=== PATIENT | male | born 1990 | race Two or more races ===

== ENCOUNTER 2024-03-31 15:53 | Emergency (ER) | payer MEDICAID, SELFPAY ==
--- NOTE | 2024-03-31 15:55 | EKG_ITS ---
[facility] Test Date: 2024-03-31 Pat Name: MARGARITO THACKER Department: Room: - Gender: Male [employer]: : 1990 Requested By: Conor Cohen (CORNELIA) Order Number: [id number] Reading MD: Conor Cohen (REFRACTORY TECHNICIAN) Measurements Intervals [place] Rate: 71 P: 36 WA: 158 QRS: 48 QRSD: 99 T: 32 QT: 374 QTc: 408 Interpretive Statements SINUS RHYTHM INDETERMINATE AXIS ATYPICAL ECG No previous ECG available for comparison /[email or web address]/[id number]
[2024-03-31 15:59] VITALS: BP 153/88; PULSE 75; RESP 18; TEMP 36.9; O2SAT 97; BMI 36.5
--- NOTE | 2024-03-31 16:05 | XR_ITS ---
Examination: PA lateral chest 2 views TECHNIQUE: Upright PA lateral chest 2 views Exam date 9: March 31, 2024 1620 hours Comparison August 26, 2021 INDICATIONS: Cardiac palpitations chest discomfort today. FINDINGS: Normal heart size Lungs are clear. The osseous structures are intact IMPRESSION: No active disease
[2024-03-31 17:09] LABS: Troponin I < 0.002 ng/mL (0.0-0.045)
--- NOTE | 2024-03-31 17:52 | PD.EDARRY ---
ED Arrhythmia Palp. RME/HPI General Chief Complaint: Arrhythmia/Palpitations Stated Complaint: PALPITATIONS, CHEST DISCOMFORT Time Seen by Provider: 03/31/24 16:05 Arrival date/time: 03/31/24 15:53 33-year-old male with history of anxiety presents to the emergency department today stating that he felt that he had some palpitations today patient reports no fever nausea or vomiting no dizziness or weakness no chest pain or shortness of breath Limitations: no limitations Related Data Previous Rx's ?Medication ?Instructions ?Recorded Promethazine Hcl (Phenergan) 1 tab PO Q4-6HRPRN PRN NAUSEA OR 07/19/13 VOMITING #15 tabs lorazepam 1 mg tablet (Ativan) 1 mg PO QHSPRN PRN sleep #14 tabs 08/22/21 Allergies Allergy/AdvReac Type Severity Reaction Status Date / Time No Known Allergies Allergy Verified 03/31/24 15:55 Review of Systems Review of Systems Systems Reviewed: All systems reviewed, normal except as documented Constitutional Constitutional: Reports system reviewed and no additional complaints, except as documented, Denies fever(s) and Denies headache(s) Eyes Eyes: Reports system reviewed and no additional complaints, except as documented and Denies blurry vision ENT Ears, Nose, Mouth, and Throat: Reports system reviewed and no additional complaints, except as documented, Denies headache(s), Denies nasal congestion and Denies nasal discharge Cardiovascular Cardiovascular: Reports system reviewed and no additional complaints, except as documented, Denies chest pain, Denies dyspnea and Reports other (Palpitation) Respiratory Respiratory: Reports system reviewed and no additional complaints, except as documented, Denies chest congestion, Denies cough and Denies dyspnea Gastrointestinal Gastrointestinal: Reports system reviewed and no additional complaints, except as documented and Denies abdominal pain Integumentary/Breasts Skin/Breast: Reports system reviewed and no additional complaints, except as documented and Denies rash Neurologic Neurologic: Reports system reviewed and no additional complaints, except as documented, Reports as per HPI and Denies headache(s) Psychiatric Psychiatric: Reports system reviewed and no additional complaints, except as documented and Reports anxiety Past Medical History Past Medical History NEUROLOGIC: Negative Neurological Disorders CARDIAC: Negative Cardiac Disorders ED Exam General Limitations: Present no limitations General appearance: Present alert and in no apparent distress Head Head exam: Present atraumatic, normocephalic and normal inspection Eye Eye exam: Present normal appearance, PERRL and EOMI; Absent conjunctival injection ENT ENT exam: Present normal exam, normal oropharynx and mucous membranes moist Neck Neck exam: Present normal inspection, full ROM and trachea midline Chest Chest inspection: Present normal inspection and symmetric chest wall rise Respiratory Respiratory exam: Present normal lung sounds bilaterally; Absent respiratory distress Cardiovascular Cardiovascular exam: Present regular rate, normal rhythm and normal heart sounds; Absent bradycardia, tachycardia, irregular rhythm, systolic murmur or diastolic murmur Abdominal Exam Abdominal exam: Present soft and normal bowel sounds; Absent distention, tenderness, guarding, rebound or rigidity Extremities Exam Extremities exam: Present normal inspection and full ROM Back Exam Back exam: Present normal inspection and full ROM Neurological Exam Neurological exam: Present alert, oriented X3 and CN II-XII intact Psychiatric Psychiatric exam: Present normal affect and normal mood Skin Skin exam: Present warm, dry, intact and normal color Course Quality Measures none Orders Category Date Time Status EKG (ED ONLY) *Do not use* NOW Care 03/31/24 15:55 Completed EKG (ED Only) Stat Exams 03/31/24 15:55 Draft XR chest 2V Stat Exams 03/31/24 16:05 Completed Troponin I Stat Lab 03/31/24 16:15 Completed Vital Signs Vital signs: Vital Signs Temperature 98.5 F 03/31/24 15:59 Pulse Rate 75 03/31/24 15:59 Respiratory Rate 18 03/31/24 15:59 Blood Pressure 153/88 H 03/31/24 15:59 Pulse Oximetry (%) 97 03/31/24 15:59 Oxygen Delivery Method Room Air 03/31/24 15:59 O2 saturation 97% room air within normal limits Procedures -ED EKG Interpretation #1: Date of EK03/31/24 Time of EK:02 Rate: 71 Interpretation: Interpreted by me EKG Impression: Normal sinus rhythm, No acute ST-T changes, No ectopy, No ischemic changes, Normal QRS, Normal intervals and Normal axis Arrhythmia/Palpitations [facility] Narrative MDM Narrative:: 33-year-old male with history of anxiety presents to the emergency department today stating that he felt that he had some palpitations today patient reports no fever nausea or vomiting no dizziness or weakness no chest pain or shortness of breath On exam patient does not appear ill or toxic in no acute distress patient hemodynamically stable Chest x-ray, EKG and lab work obtained no acute emergent findings noted Patient discharged home in no distress to follow-up with primary care doctor in the next 24 to 48 hours and for any worsening symptoms to return to the ER immediately Patient data External records reviewed:: [facility] previous records Clinical information provided by:: patient Social determinants that could affect healthcare access:: mental health Patient has the following chronic illnesses:: Anxiety How is presenting disease/condition affected by chronic disease/condition?: exacerbated by Evaluation data The following diagnostics were reviewed and interpreted by me:: lab results, radiology exam(s) and EKG tracing(s) Lab and/or radiology exams considered but not ordered:: Labs, radiology, EKG obtained Interpretation Summary: Reviewed by me Medications / Prescriptions Medications or Prescriptions considered but not ordered:: No meds Medication administrations:: No meds Consultations Consultation(s) initiated? (list below): No Diagnosis Differential diagnosis arrhythmia/palpitations: palpitations, anxiety, sinus tachycardia and supraventricular tachycardia Most likely diagnosis given after review of the tests above:: Anxiety Admission Indicated Admission indicated?: not indicated Admission Request Was there a request for admission?: No Disposition Plan Disposition Plan: Discharge Discharge Attestation Discharge Attestation: The patient and all family members were given an opportunity to ask questions and understood the discharge instructions. Discharge instructions specifically effects, indications for sooner follow up or return to the emergency department, and the expected course of current diagnosis. Patient condition: Stable Discharge Plan Plan Patient Disposition: HOME (Self Care) Disposition Comment: Stable Prescriptions/Referrals Prescriptions/Med Rec: No Action Promethazine Hcl (Phenergan) 25 MG tablet 1 tab PO Q4-6HRPRN PRN (Reason: NAUSEA OR VOMITING) Qty: 15 0RF lorazepam [Ativan] 1 mg tablet 1 mg PO QHSPRN PRN (Reason: sleep) Qty: 14 0RF [facility]: [facility] [Primary Care Provider] - 04/01/24 Problem List Clinical Impression: Palpitations Patient/Caregiver Discharge Instructions Education Materials: ED Palpitations Additional Instructions: Please follow up with your primary care doctor in the next 24-48hrs for any worsening symptoms return here immediately Print Language: Romanian Stand Alone Forms: Vale Award Info., Work/School Release, Patient Portal Info Letter BOBBY/YARI Supervising Physician BOBBY/YARI Supervising Physician: Dr. Higuera
== END 2024-03-31 18:16 | disposition home or self-care (01) ==
PROVIDERS: Nurse Practitioner Primary Care; Emergency Provider Emergency Medicine; PCP Nurse Practitioner Family
DX: R00.2 Palpitations (principal); F41.9 Anxiety disorder, unspecified
CPT/HCPCS: 36415; 71046; 84484; 93005; 99283

== ENCOUNTER → 2024-07-27 | Outpatient (CLI) | payer MEDICAID, SELFPAY ==
--- NOTE | 2024-07-27 12:30 | XR_ITS ---
Examination: Abdomen sonogram, complete Date and time of exam: July 27, 2024 at 0922 hrs. Indications: Nausea dizziness abdominal pain 3 weeks. Technique: Multiple real-time grayscale transabdominal sonographic images of the abdomen have been obtained. Findings: Normal gallbladder Normal common bile duct 0.2 cm Pancreatic head 2.9 cm Aorta not enlarged. Liver 17.1 fatty infiltration Normal hepatopedal portal venous flow Patent IVC Right kidney 10.5 cm cortex 2.0 cm Left kidney 10.3 cm cortex 2.3 cm Spleen 9.7 cm Impression: Normal gallbladder Mild hepatomegaly fatty liver
== END | disposition home or self-care (01) ==
PROVIDERS: PCP Nurse Practitioner Family; Referring Provider Nurse Practitioner Family; Visit Provider Nurse Practitioner Family
DX: R11.0 Nausea (principal); K76.0 Fatty (change of) liver, not elsewhere classified
CPT/HCPCS: 76700